=== PATIENT | female | born 1990 | race Two or more races ===

== ENCOUNTER 2018-03-29 06:19 | Emergency (ER) | payer OTHER ==
--- NOTE | 2018-03-29 07:10 | PDOC ---
History of Present Illness - General Stated Complaint: RIGHT ARM PAIN AND NUMBNESS Time Seen by Provider: 03/29/18 07:10 Past History - Past Medical History Allergies/Adverse Reactions: Allergies Allergy/AdvReac Type Severity Reaction Status Date / Time No Known Allergies Allergy Verified 02/29/16 05:56 Home Medications: Ambulatory Orders NK [No Known Home Medication] 12/05/15 Psychiatric Problems: Yes (ANXIETY, DEPRESSION) - Immunization History Immunization Up to Date: Yes - Suicide/Smoking/Psychosocial Hx Smoking Status: No Smoking History: Never smoked Have you smoked in the past 12 months: Yes Number of Cigarettes Smoked Daily: 0 Hx Alcohol Use: No Drug/Substance Use Hx: No Substance Use Type: None
[2018-03-29 07:36] VITALS: BP 129/91; PULSE 79; TEMP 98; BMI 26.2
--- NOTE | 2018-03-29 09:10 | PDOC ---
History of Present Illness - General Chief Complaint: Pain Stated Complaint: RIGHT ARM PAIN AND NUMBNESS Time Seen by Provider: 03/29/18 07:10 History Source: Patient Exam Limitations: No Limitations - History of Present Illness Initial Comments: 03/29/18 09:05 Best Contact: PCP:Dr. Durham/orthopedic Pmhx:Anxiety Pshx: Left ORIF wrist 03/28/2018 Allergies: NKDA LMP: 02/20/2018 27-year-old female who is right hand dominant presents to the ER complaining of a tightening sensation to her right volar splint. Patient states she fractured her wrists and had surgery yesterday/03/28/2018 at [facility] in the [place]. Patient states when she arrived home last evening she felt a tightening sensation to the web roll and Donald bandage. Patient called her orthopedic surgeon last evening and was informed to take Percocet for her pain. Patient states she took the medication with minimal relief the still feels a tightening sensation. Patient states she feels a tingling sensation to her fingers but is able to move it without any difficulties. I released the Donald bandage and web roll and reapplied a new web roll fall R splint and Donald bandage. Within minutes, patient states she definitely feels a difference. Patient states the numbness and tingling has subsided. The pain has subsided. Past History - Past Medical History Allergies/Adverse Reactions: Allergies Allergy/AdvReac Type Severity Reaction Status Date / Time No Known Allergies Allergy Verified 03/29/18 07:22 Home Medications: Ambulatory Orders NK [No Known Home Medication] 12/05/15 COPD: No Psychiatric Problems: Yes (ANXIETY, DEPRESSION) - Immunization History Immunization Up to Date: Yes - Suicide/Smoking/Psychosocial Hx Smoking Status: No Smoking History: Never smoked Have you smoked in the past 12 months: Yes Number of Cigarettes Smoked Daily: 0 Information on smoking cessation initiated: No Hx Alcohol Use: No Drug/Substance Use Hx: No Substance Use Type: None Review of Systems - Review of Systems Able to Perform ROS?: Yes Comments:: 03/29/18 09:14 CONSTITUTIONAL: Absent: fever, chills, diaphoresis, generalized weakness, malaise, loss of appetite MUSCULOSKELETAL: Absent: myalgia, arthralgia, joint swelling SKIN: Absent: rash, itching, pallor right forearm/hands Pain/numb/tingling volar splint with web roll/donald intact Is the patient limited Azeri proficient: No *Physical Exam - Vital Signs Last Vital Signs Temp Pulse Resp BP Pulse Ox 98.0 F 79 18 129/91 100 03/29/18 07:24 03/29/18 07:24 03/29/18 07:24 03/29/18 07:24 03/29/18 07:24 - Physical Exam Comments: 03/29/18 09:15 GENERAL: Well developed, well nourished. Awake and alert. No acute distress. MUSCULOSKELETAL Normal range of motion at all joints. No bony deformities or tenderness. No CVA tenderness. EXTREMITIES: No cyanosis. No clubbing. No edema. No calf tenderness. SKIN: Warm and dry. Normal capillary refill. No rashes. No jaundice. Right hand +R.O.M. cap refill < 2 sec 2 point sensation intact Right elbow F.R.O.M> Neg pain on palp Procedure: removed donald/web roll/ volar spint reapplied with new 3" sethi roll volar splint 4" donald bandage Moderate Sedation - Procedure Monitoring Vital Signs: Vital Signs Temp Pulse Resp BP Pulse Ox 98.0 F 79 18 129/91 100 03/29/18 07:24 03/29/18 07:24 03/29/18 07:24 03/29/18 07:24 03/29/18 07:24 *DC/Admit/Observation/Transfer Diagnosis at time of Disposition: Right wrist pain - Discharge Dispostion Disposition: HOME Condition at time of disposition: Stable Decision to Admit order: No - Referrals Referrals: Thomas Sharif MD [Staff Physician] - - Patient Instructions Additional Instructions: You are to call your orthopedic surgeon this morning regarding your concerns. A new web roll and Donald bandage has been applied to your volar splints. Just in case you cannot get in touch with your orthopedic surgeon, one has been provided for you on your discharge form. Return back to the ER for any concerns - Post Discharge Activity
== END 2018-03-29 09:10 | disposition home or self-care (01) ==
LOC: JER 06:19 → JERFT 06:19
PROC: 2W3CX1Z Immobilization of Right Lower Arm using Splint (ICD-10-PCS; principal; 2018-03-29)
DX: S62.101D Fracture of unspecified carpal bone, right wrist, subsequent encounter for fracture with routine healing (principal)
CPT/HCPCS: 29125; 99281-25